=== PATIENT | female | born 1940 | race Caucasian/White ===

== ENCOUNTER → 2016-11-06 | Outpatient (CLI) | payer MEDICARE ==
[2016-11-06 17:36] LABS: Basophils % (A) 0 %; CHCM 33.5; Eosinophils % (A) 1 %; HCT 35.7 % (34.0-46.0); HDW 2.87; HGB 11.6 gm/dL (11.4-16.0); Luc # (Auto) 0.03; Luc % (Auto) 1; Lymphocytes # (A) 0.4 k/uL (1.0-4.8); Lymphocytes % (A) 11 %; MCH 30.2 pg (25.0-35.0); MCHC 32.3 g/dL (31.0-37.0); MCV 93.2 fL (80.0-100.0); Mean Platelet Volume 7.6; Monocytes # (A) 0.2 k/uL (0-1.0); Monocytes % (A) 4 %; Neutrophils # (A) 3.4 k/uL (1.3-7.7); Neutrophils % (A) 83 %; RBC 3.83 m/uL (3.80-5.40); RDW 13.8 % (11.5-15.5); WBC (Perox) 4.15
[2016-11-06 17:44] LABS: INR 1.4 (<1.1); Partial Thromboplastin Time 27.1 sec (22.0-30.0); Prothrombin Time 14.1 sec (9.0-12.0)
[2016-11-06 17:48] LABS: EKG EKG PERFORMED
[2016-11-06 18:10] LABS: ALT 28 U/L (9-52); AST 24 U/L (14-36); Alkaline Phosphatase 46 U/L (38-126); Anion Gap 11 mmol/L; Blood Urea Nitrogen 17 mg/dL (7-17); Calcium 10.1 mg/dL (8.4-10.2); Carbon Dioxide 25 mmol/L (22-30); Chloride 105 mmol/L (98-107); Glucose 176 mg/dL (74-99); Non-African American GFR(MDRD) >60 (>60 ml/min/1.73 sqM); Potassium 4.2 mmol/L (3.5-5.1); Sodium 141 mmol/L (137-145); Total Bilirubin 1.9 mg/dL (0.2-1.3); Total Protein 6.2 g/dL (6.3-8.2)
[2016-11-06 18:17] LABS: Prealbumin 12 mg/dL (18-36)
[2016-11-06 19:07] LABS: Manual Review Performed
[2016-11-06 22:35] LABS: Hemoglobin A1C 6.3 % (4.2-6.1)
== END | disposition home or self-care (01) ==
LOC: LABPAT 16:47
PROVIDERS: ATTEND Surgery
DX: Z01.812 Encounter for preprocedural laboratory examination (principal); I10 Essential (primary) hypertension
CPT/HCPCS: 80053; 83036; 84134; 84443; 85025; 85610; 85730; 93005

== ENCOUNTER → 2016-11-15 | Outpatient (CLI) | payer MEDICARE ==
--- NOTE | 2016-11-15 12:04 | ECHOF ---
Referral Reason:I10 htn MEASUREMENTS -------- HEIGHT: 157.5 cm WEIGHT: 81.7 kg BP: IVSd: 1.4 cm (0.6 - 1.1) LVIDd: 4.1 cm (3.9 - 5.3) LVPWd: 1.3 cm (0.6 - 1.1) IVSs: 1.8 cm LVIDs: 3.2 cm LVPWs: 1.4 cm LA Diam: 3.8 cm (2.7 - 3.8) LAESV Index (A-L): 27.08 ml/m Ao Diam: 3.6 cm (2.0 - 3.7) AV Cusp: 2.0 cm (1.5 - 2.6) LA Diam: 4.1 cm (2.7 - 3.8) MV EXCURSION: 15.271 mm (> 18.000) MV EF SLOPE: 92 mm/s (70 - 150) EPSS: 0.2 cm MV E Victor Hugo: 0.68 m/s MV DecT: 232 ms MV A Victor Hugo: 0.91 m/s MV E/A Ratio: 0.75 RAP: 5.00 mmHg RVSP: 28.14 mmHg FINDINGS -------- Sinus rhythm. This was a technically good study. There is moderate concentric left ventricular hypertrophy. Overall left ventricular systolic function is low-normal with, an EF between 50 - 55 %. The right ventricle is normal in size. Normal LA size by volume 22+/-6 ml/m2. The right atrial size is normal. There is mild aortic valve sclerosis. There is no evidence of aortic regurgitation. Mild mitral annular calcification present. Mild mitral regurgitation is present. Mild tricuspid regurgitation present. There is no evidence of pulmonary hypertension. The right ventricular systolic pressure, as measured by Doppler, is 28.14mmHg. There is no pulmonic regurgitation present. The aortic root size is normal. There is no pericardial effusion. CONCLUSIONS -------- 1. There is moderate concentric left ventricular hypertrophy. 2. Overall left ventricular systolic function is low-normal with, an EF between 50 - 55 %. 3. There is mild aortic valve sclerosis. 4. Mild mitral annular calcification present. 5. Mild mitral regurgitation is present. 6. Mild tricuspid regurgitation present. 7. There is no evidence of pulmonary hypertension. 8. The right ventricular systolic pressure, as measured by Doppler, is 28.14mmHg. ASSISTANT ENGINEER: Delia Holloway RDCS
== END | disposition home or self-care (01) ==
LOC: RADECHMAIN 10:48
PROVIDERS: ATTEND Surgery
DX: I08.8 Other rheumatic multiple valve diseases (principal); E11.9 Type 2 diabetes mellitus without complications; D61.818 Other pancytopenia
CPT/HCPCS: 93306

== ENCOUNTER 2016-11-23 07:59 | Day surgery (SDC) | payer MEDICARE ==
[2016-11-20 11:14] VITALS: BMI 34.7
[~2016-11-23 07:59] MED LIST: DEXAMETHASONE SOD PHOSPHATE 10 MG/ML 1 ML VIAL IV ONE; LACTATED RINGERS 1,000 ML IV SCH; ONDANSETRON 4 MG/2 ML VIAL IVP ONE; ceFAZolin 2 GM in SODIUM CHLORIDE 0.9% 100 ML IVPB ONE
[2016-11-23] MEDS ORDERED: LIDOCAINE 1% 20 ML VIAL (10MG/ML) FOR IV START INTRADERMA ONE (08:20)
[2016-11-23 08:26] LABS: Glucose,Whole Blood 137 mg/dL (75-99)
[2016-11-23] MEDS: HEPARIN SODIUM,PORCINE 5,000 UNIT/ML 1 ML VIAL SQ ONE ×2 (08:39→08:40)
[2016-11-23 08:45] LABS: Basophils % (A) 1 %; CH 31.7; CHCM 35.3; Eosinophils % (A) 1 %; HCT 35.4 % (34.0-46.0); HDW 3.15; HGB 12.1 gm/dL (11.4-16.0); Luc # (Auto) 0.03; Luc % (Auto) 1; Lymphocytes # (A) 0.6 k/uL (1.0-4.8); Lymphocytes % (A) 16 %; MCH 30.9 pg (25.0-35.0); MCHC 34.2 g/dL (31.0-37.0); MCV 90.3 fL (80.0-100.0); Mean Platelet Volume 7.5; Monocytes # (A) 0.2 k/uL (0-1.0); Monocytes % (A) 5 %; Neutrophils # (A) 2.6 k/uL (1.3-7.7); Neutrophils % (A) 76 %; RBC 3.92 m/uL (3.80-5.40); RDW 14.1 % (11.5-15.5); WBC 3.4 k/uL (3.8-10.6); WBC (Perox) 3.62
[2016-11-23] MEDS ORDERED: HYDROmorphone (PF) 1 MG/ML ONE (10:09)
[2016-11-23] MEDS ORDERED: ROCURONIUM BROMIDE 10 MG/ML 10 ML VIAL IV ONE (10:09)
[2016-11-23] MEDS ORDERED: LABETALOL 5 MG/ML VIAL MDV ONE (10:09)
[2016-11-23] MEDS ORDERED: PROPOFOL 10 MG/ML 20 ML VIAL IV ONE (10:09)
[2016-11-23] MEDS ORDERED: fentaNYL (PF) 50 MCG/ML 2 ML AMP ONE (10:09)
[2016-11-23] MEDS ORDERED: MIDAZOLAM 2 MG/2 ML VIAL ONE (10:09)
[2016-11-23] MEDS ORDERED: SUCCINYLCHOLINE CHLORIDE 100 MG/5 ML SYR IV ONE (10:09)
[2016-11-23] MEDS ORDERED: BUPIVACAIN-EPI 0.25%-1:200,000 30 ML VIAL SQ ONE ×2 (10:37)
--- NOTE | 2016-11-23 11:59 | P.OP ---
Date of Procedure: 11/23/16 Preoperative Diagnosis: Incarcerated umbilical hernia Cirrhosis of liver Chronic hep c Obesity 34.8 Thrombocytopenia Coagulopathy Postoperative Diagnosis: Incarcerated umbilical hernia Cirrhosis of liver Chronic hep c Obesity 34.8 Thrombocytopenia Coagulopathy Splenomegaly Ascites Portal hypertension Procedure(s) Performed: Robotic assist lap umbilical hernia repair without mesh Implants: No mesh Anesthesia: IAN local Surgeon: Joann Loyola Pathology: none sent Condition: stable Disposition: PACU Indications for Procedure: 75 yrs old female presents with symptomatic incarcerated umbilical hernia. H/O chronic hep C, thrombocytopenia, coagulopathy. She was given oral Vitamin K and intraop infusion of FFP and platelets . Informed consent obtained and patient elected to undergo robotic assist lap umbilical hernia repair possible open. Intraop findings included liver cirrhosis, splenomegaly, moderate ascites and prominent varices along the umbilicus and omentum. These features are suggestive of portal hypertension and liver cirrhosis. Description of Procedure: The patient was brought to the operating room and placed in supine position. General anesthesia with endotracheal intubation was performed as per anesthesia team. The right arm was tucked against the body and a footboard was applied. Chlorhexidine was used to prep the skin followed by application of sterile drapes and Ioban dressing. A timeout was performed to verify correct patient and correct procedure. Patient was confirmed to receive perioperative IV antibiotics , bilateral SCDs A 1cm skin incision was made along the left midaxillary line and open technique was used to access the abdominal cavity. The 5 mm trocar was inserted to establish the pneumoperitoneum to a pressure of 15 mm of Hg. Splenomegaly noted. Prominent varices all along anterior abdominal wall and omentum. Liver cirrhosis and moderate ascites noted. Using a 5 mm 30 laparoscope the peritoneal cavity was entered using the Optiview technique. Additional 12 mm trocar was placed in the mid axillary line in the left mid abdomen and robotic 8 mm trocar in the left lower abdomen. The 5 mm trocar was upsized to 8 mm robotic trocar. The da Eunice robot was then docked. The 30 robotic camera was used. A robotic prograsp and Vessel sealer were inserted through 8 mm robotic trocars The hernia defect contained preperitoneal fat and omentum which were reduced using gentle traction and countertraction method. Using vessel sealer, the periumbilical varices were coagulated. The hernia defect was closed primarily with running sutures using O- V lock by taking 1 cm bite on the fascia on either side of the defect. The suture line was reinforced with another layer of continuous sutures. No mesh used. Anterior abdominal wall has prominent varices and suturing the mesh to the anterior abdominal wall would cause excessive bleeding. The robot was then undocked. Laparoscopic 30 degrees camera was reinserted. All trocar sites were examined. No evidence of bleeding. The 12 mm trocar site was closed using two transfascial sutures of 0 Vicryl which were placed using a Norman Amrita device. The pneumoperitoneum was evacuated and all the skin incisions were closed using 4-0 Monocryl followed by Dermabond skin glue. Telfa and Tegaderm dressings were applied. The sponge, instrument and needle count were correct x2. Abdominal binder was applied. The patient was extubated and taken to post anesthesia care unit in stable condition.
[2016-11-23 12:26] LABS: Glucose,Whole Blood 175 mg/dL (75-99)
[2016-11-23] MEDS: HYDROmorphone 1 MG/ML 1 ML SYRINGE IVP PRN ×2 (12:46→12:56)
[2016-11-23] MEDS ORDERED: traMADol 50 MG TAB PO ONE (15:12)
[2016-11-23] MEDS ORDERED: LACTATED RINGERS 1,000 ML IV SCH (16:56)
[2016-11-23 18:27] LABS: Glucose,Whole Blood 285 mg/dL (75-99)
[2016-11-23] MEDS: traMADol 50 MG TAB PO SCH ×2 (18:27→21:02)
[2016-11-23 20:13] LABS: Glucose,Whole Blood 290 mg/dL (75-99)
[2016-11-23] MEDS: HEPARIN SODIUM,PORCINE 5,000 UNIT/ML 1 ML VIAL SQ SCH (21:02)
[2016-11-23] MEDS: INSULIN LISPRO (humaLOG) 300 UNIT/3 ML VIAL SQ SCH (21:02)
[2016-11-23] MEDS ORDERED: METOPROLOL TARTRATE 25 MG TAB PO STA (21:29)
[2016-11-23 21:50] VITALS: RESP 16
[2016-11-23 21:51] LABS: Hemoglobin A1C 6.3 % (4.2-6.1)
[2016-11-24] MEDS ORDERED: HYDROmorphone 1 MG/ML 1 ML SYRINGE IVP STA (02:59)
[2016-11-24 06:47] LABS: Glucose,Whole Blood 136 mg/dL (75-99)
[2016-11-24] MEDS ORDERED: glipiZIDE 10 MG TAB PO SCH (07:30)
[2016-11-24] MEDS: INSULIN LISPRO (humaLOG) 300 UNIT/3 ML VIAL SQ SCH ×2 (07:56→12:06)
[2016-11-24] MEDS: HEPARIN SODIUM,PORCINE 5,000 UNIT/ML 1 ML VIAL SQ SCH (07:57)
[2016-11-24] MEDS: traMADol 50 MG TAB PO SCH (07:58)
[2016-11-24] MEDS ORDERED: CHOLECALCIFEROL 1,000 UNIT TAB PO SCH (09:00)
[2016-11-24] MEDS ORDERED: SPIRONOLACTONE 25 MG TAB PO SCH (09:00)
[2016-11-24] MEDS ORDERED: FUROSEMIDE 40 MG TAB PO SCH (09:00)
[2016-11-24] MEDS ORDERED: FERROUS SULFATE 325 MG TAB PO SCH (09:00)
--- NOTE | 2016-11-24 11:06 | P.CONS ---
History of Present Illness - Reason for Consult Consult date: 11/24/16 Medical management Requesting physician: Joann Loyola - History of Present Illness 75-year-old female being seen at the request of the attending for medical eval and medical management. Dr. Gregory is covering for patient's primary care provider Dr. Garret hung Patient is status post done on November 23 robotic- assisted lap umbilical hernia repair without mesh due to incarcerated umbilical hernia. Patient is being seen this morning sitting up in bed reports no nausea vomiting abdominal binder in place. Abdomen is soft nondistended. Patient gives a history of having cirrhosis of the liver with chronic hep C with thrombocytopenia in which the patient states is been followed by hematology Dr. Valdovinos. Patient states that she did see Dr. Valdovinos a week before the surgery to get surgical clearance. platelets this morning are 41. Patient's normal platelets range between 58 and 43. Patient additionally has a history of bipolar in which she states that she sees an outpatient counselor and is on no bipolar meds additionally patient states that her hep C has been under treatment this been treated by plug wirer Dr. martinez the [facility] Review of Systems Essentially unremarkable except as mentioned in the present illness Past Medical History Past Medical History: Blood Disorder, Diabetes Mellitus, Hypertension, Osteoarthritis (OA) Additional Past Medical History / Comment(s): HX OF HEPATITIS C, STATES LOW PLATELETS, BRUISES EASILY, BROKE LEFT LEG AND SHATTERED KNEE 1 YEAR AGO AND USES WALKER . STATES LYMPH EDEMA BOTH LEGS-MORE IN LEFT LEG., HX OF GOUT. History of Any Multi-Drug Resistant Organisms: None Reported Past Surgical History: Cholecystectomy, Joint Replacement, Orthopedic Surgery Additional Past Surgical History / Comment(s): EYE SURGERY (CHILD), LEFT TOTAL HIP, GAVIN LEFT LEG. Past Anesthesia/Blood Transfusion Reactions: Previous Problems w/ Anesthesia Additional Past Anesthesia/Blood Transfusion Reaction / Comm: STATES PROBLEMS BREATHING AFTER GALL BLADDER SURGERY. Past Psychological History: Bipolar Additional Psychological History / Comment(s): STATES NO MEDS. Smoking Status: Never smoker Past Alcohol Use History: None Reported Past Drug Use History: None Reported - Past Family History Mother Family Medical History: No Reported History Medications and Allergies Home Medications Medication Instructions Recorded Confirmed Type Cholecalciferol [Vitamin D3] 1,000 unit PO DAILY 11/20/16 11/20/16 History Ferrous Sulfate [Feosol] 325 mg PO DAILY 11/20/16 11/20/16 History Furosemide [Lasix] 80 mg PO DAILY 11/20/16 11/20/16 History HYDROcodone/APAP 7.5-325MG [[place] 1 tab PO TID PRN 11/20/16 11/23/16 History 7.5-325] Losartan [Cozaar] 25 mg PO DAILY@1200 11/20/16 11/20/16 History Metoprolol Tartrate [Lopressor] 25 mg PO DAILY@1200 11/20/16 11/23/16 History Spironolactone [Aldactone] 25 mg PO BID 11/20/16 11/23/16 History Vitamin B Complex 1 each PO DAILY 11/20/16 11/20/16 History glipiZIDE [Glucotrol] 10 mg PO BID 11/20/16 11/23/16 History Phytonadione [Vitamin K] 11/23/16 History Allergies Allergy/AdvReac Type Severity Reaction Status Date / Time No Known Allergies Allergy Verified 11/20/16 10:58 Physical Exam Vitals: Vital Signs Temp Pulse Resp BP Pulse Ox 11/24/16 01:45 97.9 F 61 16 147/66 94 L 11/23/16 20:30 73 158/70 93 L 11/23/16 20:00 71 154/54 11/23/16 19:45 69 160/74 92 L 11/23/16 19:30 72 134/62 94 L 11/23/16 19:15 67 153/70 95 11/23/16 19:00 75 152/73 95 11/23/16 18:45 67 152/99 95 11/23/16 18:30 97.9 F 77 16 144/57 98 11/23/16 17:00 79 18 152/66 92 L 11/23/16 15:12 79 18 162/68 95 11/23/16 14:36 67 18 157/68 95 11/23/16 14:21 61 18 155/65 95 11/23/16 14:00 60 18 163/63 97 11/23/16 13:45 67 18 167/71 94 L 11/23/16 13:32 68 18 169/75 97 11/23/16 13:15 68 18 151/65 97 11/23/16 13:00 68 18 155/68 94 L 11/23/16 12:45 64 18 169/72 99 11/23/16 12:30 66 18 149/66 99 11/23/16 12:15 69 18 167/72 99 11/23/16 12:06 97.6 F 88 18 186/79 94 L Intake and Output 11/23/16 11/24/16 11/24/16 22:59 06:59 14:59 Intake Total 260 160 200 Balance 260 160 200 Intake: IV 60 160 Lactated Ringers 1,000 ml 60 160 @ 20 mls/hr IV .Q24H [facility] Rx#:[id number] Oral 200 200 Other: Voiding Method Toilet # Voids 1 2 Weight 86.183 kg GENERAL APPEARANCE: 75-year-old female patient is alert, oriented, in no acute distress. Talkative cooperative resting in bed VITAL SIGNS: Reviewed HEENT: Head is normocephalic and atraumatic. Pupils are equal and reactive. The nares are patent. Oropharynx is clear without lesions. NECK: Supple without lymphadenopathy. Traches midline. HEART: S1, S2. Regular rate and rhythm. No murmur noted denying chest pain LUNGS: No crackles or wheezes are heard. Adequate air movement bilaterally on room air with a sat documented 94% ABDOMEN: Soft, nontender, nondistended with good bowel sounds. No peritoneal signs. No palpable organomegaly or masses. Abdominal binder in place. Surgical sites no redness noted. Patient states urinating with no difficulty. Patient states is not passing any gas no stool EXTREMITIES: Normal skin color and turgor. No cyanosis, rash, ulceration, clubbing nonpitting bilateral lower extremity edema. Radial pedal pulses are 2/ 4 bilaterally. Venodyne's on to the bilateral lower extremities NEUROLOGICAL: No focal deficits. Strength and sensation are grossly intact. Results CBC & Chem 7: 11/23/16 08:30 Labs: Abnormal Lab Results - Last 24 Hours (Table) 11/23/16 11/23/16 11/23/16 Range/Units 08:30 12:24 18:25 POC Glucose (mg/dL) 175 H 285 H (75-99) mg/dL Hemoglobin A1c 6.3 H (4.2-6.1) % 11/23/16 11/24/16 Range/Units 20:12 06:45 POC Glucose (mg/dL) 290 H 136 H (75-99) mg/dL Hemoglobin A1c (4.2-6.1) % Assessment and Plan Plan: Impression Incarcerated umbilical hernia status post November 23 robotic assist lap umbilical hernia repair without mesh Chronic thrombocytopenia followed by Dr. Valdovinos History of hepatitis C under treatment History of bipolar disorder Obesity BMI 34 Cirrhosis of the liver Iron deficiency anemia on supplement Type 2 diabetes non-insulin hemoglobin A1c 6.3 Plan Continue with postop surgical care per surgical service Resume home meds as appropriate Repeat labs in the morning Increase activity to the level of tolerance Encourage the use of an incentive spirometer use every hour while awake Monitor blood sugars address as indicated DVT and GI prophylaxis pain control Diet as tolerated Thank you for allowing us to participate in the medical management of your patient will follow along with further recommendations as indicated The above dictated assessment and findings were discussed with dr valerie Farooq and the plan of care have been dictated as directed. Ayala Austin nurse practitioner acting as a scribe for dr gregory
[2016-11-24 11:35] VITALS: BP 129/53; PULSE 62; TEMP 97.1
[2016-11-24 11:50] LABS: Glucose,Whole Blood 130 mg/dL (75-99)
[2016-11-24] MEDS ORDERED: LOSARTAN 25 MG TAB PO SCH (12:00)
[2016-11-24] MEDS ORDERED: METOPROLOL TARTRATE 25 MG TAB PO SCH (12:00)
--- NOTE | 2016-11-24 12:30 | P.PN ---
Subjective Patient is a 75-year-old white female status post umbilical hernia. Repair. She is postop day 1. She is doing well at this time tolerating diet without difficulty. She is not complaining of any increased pain. Patient does have a history of hepatitis C cirrhosis and thrombocytopenia. She is followed by Dr. Mcmullen. Patient also has a history of bipolar disease. Objective - Vital Signs Vital signs: Vital Signs Temp 97.1 F L 11/24/16 07:00 Pulse 62 11/24/16 07:00 Resp 16 11/24/16 07:00 BP 129/53 11/24/16 07:00 Pulse Ox 97 11/24/16 07:00 Intake & Output 11/23/16 11/24/16 11/24/16 18:59 06:59 18:59 Intake Total 2902 420 200 Output Total 230 Balance 2672 420 200 Weight 86.183 kg Intake: IV 1800 220 Lactated Ringers 1,000 ml 220 @ 20 mls/hr IV .Q24H [facility] Rx#:[id number] Oral 200 200 Blood Product 1102 Ffp 24 Cpd Unit 334 [id number] Ffp 24 Cpd Unit 303 [id number] Platelet Irr Pheresis 202 Acda1 Unit [id number] Platelet Pheresis Acda2 263 Unit [id number] Output: Urine 200 Estimated Blood Loss 30 Other: Voiding Method Toilet # Voids 2 - Constitutional General appearance: Present: obese - Respiratory Respiratory: bilateral: CTA - Cardiovascular Rhythm: regular Heart sounds: normal: S1, S2 - Gastrointestinal Gastrointestinal Comment(s): Incisions clean and dry Dressing clean and dry. Mild ecchymosis right lower quadrant General gastrointestinal: Present: normal bowel sounds - Psychiatric Psychiatric: Present: A&O x's 3, appropriate affect, intact judgment & insight - Labs CBC & Chem 7: 11/23/16 08:30 Labs: Abnormal Lab Results - Last 24 Hours (Table) 11/23/16 11/23/16 11/23/16 Range/Units 08:30 12:24 18:25 POC Glucose (mg/dL) 175 H 285 H (75-99) mg/dL Hemoglobin A1c 6.3 H (4.2-6.1) % 11/23/16 11/24/16 11/24/16 Range/Units 20:12 06:45 11:39 POC Glucose (mg/dL) 290 H 136 H 130 H (75-99) mg/dL Hemoglobin A1c (4.2-6.1) % Assessment and Plan Plan: Impression/plan: 1. Postop day #1 robotic-assisted laparoscopic umbilical hernia repair without mesh 2 chronic thrombocytopenia 3 hepatitis C 4 bipolar disorder 5 obesity 6 cirrhosis of the liver 7. Deficiency anemia 8 type 2 diabetes Plan: 1. Patient is seen stable for discharge home from surgical standpoint 2. Follow with medicine
--- NOTE | 2016-11-24 12:31 | P.DS ---
Providers Attending physician: Joann Loyola Consults: 11/23/16 20:59 Consult Physician Routine Consulting Provider: Valeria Gregory Consult Reason/Comments: medical management Do you want consulting provider notified?: Already Contacted Primary care physician: Rachelle Borden Plan - Discharge Summary New Discharge Prescriptions: traMADol HCl [Ultram] 100 mg PO Q6HR PRN #20 tab PRN Reason: Pain Discharge Medication List Cholecalciferol [Vitamin D3] 1,000 unit PO DAILY 11/20/16 [History] Ferrous Sulfate [Feosol] 325 mg PO DAILY 11/20/16 [History] Furosemide [Lasix] 80 mg PO DAILY 11/20/16 [History] HYDROcodone/APAP 7.5-325MG [[place] 7.5-325] 1 tab PO TID PRN 11/20/16 [History] Losartan [Cozaar] 25 mg PO DAILY@1200 11/20/16 [History] Metoprolol Tartrate [Lopressor] 25 mg PO DAILY@1200 11/20/16 [History] Spironolactone [Aldactone] 25 mg PO BID 11/20/16 [History] Vitamin B Complex 1 each PO DAILY 11/20/16 [History] glipiZIDE [Glucotrol] 10 mg PO BID 11/20/16 [History] Phytonadione [Vitamin K] 11/23/16 [History] traMADol HCl [Ultram] 100 mg PO Q6HR PRN #20 tab 11/23/16 [Rx] Follow up Appointment(s)/Referral(s): Joann Loyola MD [STAFF PHYSICIAN] - 12/04/16 9:40 am Patient Instructions/Handouts: *Surgery [facility] - (Anesthesia) Discharge Instructions Outpatient Surgery, Laparoscopic Herniorrhaphy (DC), Umbilical Hernia (DC) Activity/Diet/Wound Care/Special Instructions: OK to shower 24hours . No soaking bath. No heavy lifting more than 10 lbs for 6 weeks post surgery. No driving while taking narcotics for pain. May use ice packs for local pain relief Use incentive spirometry 10 times an hour while awake Discharge Disposition: HOME SELF-CARE
== END 2016-11-24 15:41 | disposition home or self-care (01) ==
LOC: OR 07:59 → 3SUR 12:06 → OR 11-24 15:41
PROVIDERS: ATTEND Surgery
DX: K42.0 Umbilical hernia with obstruction, without gangrene (principal); K74.69 Other cirrhosis of liver; B18.2 Chronic viral hepatitis C; E66.9 Obesity, unspecified; D50.9 Iron deficiency anemia, unspecified; Z68.34 Body mass index [BMI] 34.0-34.9, adult; D69.6 Thrombocytopenia, unspecified; D61.818 Other pancytopenia; D68.9 Coagulation defect, unspecified; I10 Essential (primary) hypertension; E11.9 Type 2 diabetes mellitus without complications; Z79.84 Long term (current) use of oral hypoglycemic drugs; F31.9 Bipolar disorder, unspecified; I89.0 Lymphedema, not elsewhere classified; Z79.899 Other long term (current) drug therapy
CPT/HCPCS: 36430; 86900; 86901; 83036; 85025; 86850; 49652; P9035; P9059; J2250; J1644 ×2; J1100; J0690; J2405; J3010; J1170 ×2; J0330; J2704

== ENCOUNTER → 2016-12-13 | Outpatient (CLI) | payer MEDICARE ==
[2016-12-13 16:49] LABS: Basophils % (A) 1 %; CH 31.9; CHCM 33.7; Eosinophils % (A) 2 %; HCT 36.4 % (34.0-46.0); HDW 2.99; Luc # (Auto) 0.03; Luc % (Auto) 2; Lymphocytes # (A) 0.5 k/uL (1.0-4.8); Lymphocytes % (A) 22 %; MCH 31.4 pg (25.0-35.0); Mean Platelet Volume 8.7; Monocytes # (A) 0.1 k/uL (0-1.0); Monocytes % (A) 6 %; Neutrophils # (A) 1.5 k/uL (1.3-7.7); Neutrophils % (A) 68 %; RBC 3.82 m/uL (3.80-5.40); WBC (Perox) 2.37
[2016-12-13 17:07] LABS: ALT 33 U/L (9-52); AST 29 U/L (14-36); Alkaline Phosphatase 48 U/L (38-126); Anion Gap 9 mmol/L; Bilirubin, Delta 0.4 mg/dL (0.0-0.2); Blood Urea Nitrogen 11 mg/dL (7-17); Carbon Dioxide 27 mmol/L (22-30); Chloride 104 mmol/L (98-107); Non-African American GFR(MDRD) 54 (>60 ml/min/1.73 sqM); Potassium 3.8 mmol/L (3.5-5.1); Sodium 140 mmol/L (137-145); Total Bilirubin 1.8 mg/dL (0.2-1.3)
[2016-12-13 17:11] LABS: MCV 95.4 fL (80.0-100.0)
== END | disposition home or self-care (01) ==
LOC: LABWHC1 16:19
PROVIDERS: ATTEND Family Medicine
DX: D69.6 Thrombocytopenia, unspecified (principal); I85.00 Esophageal varices without bleeding; I86.4 Gastric varices; B18.2 Chronic viral hepatitis C; E80.6 Other disorders of bilirubin metabolism; R74.0 Nonspecific elevation of levels of transaminase and lactic acid dehydrogenase [LDH]
CPT/HCPCS: 36415; 80051; 82248; 82565; 84075; 84450; 84460; 84520; 85025

== ENCOUNTER → 2017-03-07 | Outpatient (CLI) | payer MEDICARE ==
[2017-03-07 17:30] LABS: CH 31.2; CHCM 33.5; HCT 32.9 % (34.0-46.0); HDW 2.69; MCH 31.3 pg (25.0-35.0); MCHC 33.5 g/dL (31.0-37.0); MCV 93.5 fL (80.0-100.0); Mean Platelet Volume 7.3; RBC 3.52 m/uL (3.80-5.40); RDW 13.3 % (11.5-15.5); WBC 2.2 k/uL (3.8-10.6)
[2017-03-07 17:41] LABS: Calcium 9.8 mg/dL (8.4-10.2); Potassium 4.3 mmol/L (3.5-5.1); Total Bilirubin 1.1 mg/dL (0.2-1.3); Total Protein 6.6 g/dL (6.3-8.2)
[2017-03-07 21:55] LABS: Hemoglobin A1C 7.3 % (4.2-6.1)
== END | disposition home or self-care (01) ==
LOC: LABWHC1 16:24
PROVIDERS: ATTEND Family Medicine
DX: F31.30 Bipolar disorder, current episode depressed, mild or moderate severity, unspecified (principal); E11.9 Type 2 diabetes mellitus without complications
CPT/HCPCS: 36415; 80053; 82306; 83036; 84439; 84443; 85027

== ENCOUNTER → 2017-05-02 | Outpatient (CLI) | payer MEDICARE ==
[2017-05-02 17:15] LABS: Appearance,Urine Clear (Clear); Bacteria,Urine Occasional /hpf; Bilirubin,Urine Negative (Negative); Glucose,Urine (UA) Negative (Negative); Ketones,Urine Negative (Negative); Leukocyte Esterase,Urine Moderate (Negative); Nitrite,Urine Negative (Negative); Particle Count 3609; Protein,Urine Negative (Negative); RBC,Urine 4 /hpf (0-5); Specific Gravity,Urine 1.016 (1.001-1.035); Squamous Epithelial Cell,Urine 2 /hpf (0-4); UA Billing (MACRO vs. MICRO) MICRO; Urobilinogen,Urine <2.0 mg/dL (<2.0); WBC,Urine 26 /hpf (0-5)
[2017-05-02 17:23] LABS: Bilirubin, Delta 0.3 mg/dL (0.0-0.2); Calcium 10.1 mg/dL (8.4-10.2); Magnesium 1.9 mg/dL (1.6-2.3); Phosphorous 3.6 mg/dL (2.5-4.5); Potassium 4.6 mmol/L (3.5-5.1); Total Bilirubin 1.1 mg/dL (0.2-1.3); Uric Acid 11.7 mg/dL (3.7-7.4)
[2017-05-02 17:32] LABS: % Iron Saturation 26.1 % (20-50)
[2017-05-02 18:00] LABS: Basophils % (A) 1 %; CH 30.6; CHCM 33.7; Eosinophils # (A) 0.1 k/uL (0-0.7); Eosinophils % (A) 2 %; HCT 33.9 % (34.0-46.0); HDW 2.84; HGB 11.2 gm/dL (11.4-16.0); Luc # (Auto) 0.04; Luc % (Auto) 2; Lymphocytes # (A) 0.4 k/uL (1.0-4.8); Lymphocytes % (A) 20 %; MCH 30.4 pg (25.0-35.0); MCHC 33.2 g/dL (31.0-37.0); MCV 91.6 fL (80.0-100.0); Mean Platelet Volume 7.3; Monocytes # (A) 0.1 k/uL (0-1.0); Monocytes % (A) 7 %; Neutrophils # (A) 1.5 k/uL (1.3-7.7); Neutrophils % (A) 69 %; RDW 13.6 % (11.5-15.5); Reticulocyte % 2.2 % (0.5-2.0); WBC 2.2 k/uL (3.8-10.6); WBC (Perox) 2.17
[2017-05-03 14:34] LABS: Mis test requested (Non-blood) Ur Protein Electrop
[2017-05-06 10:28] LABS: Hepatits C Virus RNA, Quant <12 IU/mL (<12); LOG HCV IU/mL <1.08 (<1.08)
== END | disposition home or self-care (01) ==
LOC: LABWHC1 16:15
PROVIDERS: ATTEND Internal Medicine Gastroenterology
DX: E55.9 Vitamin D deficiency, unspecified (principal); E21.3 Hyperparathyroidism, unspecified; D64.9 Anemia, unspecified; M10.9 Gout, unspecified; N39.0 Urinary tract infection, site not specified; N17.9 Acute kidney failure, unspecified; B18.2 Chronic viral hepatitis C; N28.9 Disorder of kidney and ureter, unspecified; F41.9 Anxiety disorder, unspecified
CPT/HCPCS: 36415; 80048; 81001; 82040; 82248; 82306; 82728; 83540; 83550; 83735; 83970; 84075; 84100; 84166; 84443; 84450; 84460; 84466; 84481; 84550; 85025; 85045; 86335; 87522